=== PATIENT | female | born 1960 | race Caucasian/White ===

== ENCOUNTER 2023-05-28 09:03 | Outpatient (CLI) | payer BC, SELFPAY ==
--- NOTE | 2023-05-28 09:15 | FL_ITS ---
Patient: JAGUAR WALKER Facility:?[facility] Patient ID:?[id number] Site Patient ID:?[id number]. Site :?1960 Study:?XRay-Hip Left ARTHROGRAM TO READ-05/28/2023 11:35:12 AM Ordering Physician:MAURICE Final Report: Indication: Primary osteoarthritis of left hip Procedure : Informed consent was obtained. The site was marked. Time-out was performed. The skin of the left hip was cleansed with ChloraPrep. A sterile drape was placed. 8 cc of 1 percent lidocaine was administered for superficial anesthesia. Subsequently a 22 gauge spinal needle was introduced into the left hip joint under intermittent fluoroscopic guidance. Injection of 2 cc nonionic Omnipaque 240 contrast confirmed intra-articular location. Subsequently 11 cc of dilute gadolinium were injected. The needle was removed and hemostasis achieved with direct pressure. A dressing was placed. The patient tolerated the procedure well without immediate complication and was immediately sent to MRI for imaging. Total fluoroscopy time 57 seconds. Impression: Successful fluoroscopically guided left hip arthrogram for MRI. Dictated by Robin Matthew MD @ 05/28/2023 12:02:29 PM Signed by:?Robin Matthew MD @05/28/2023 12:02:29 PM (Electronic Signature)
--- NOTE | 2023-05-28 10:15 | MR_ITS ---
[address] [address] Phone:?[phone] Fax:?[phone] Referring Physician Information: Christopher Evans M.D. [address] [facility] [address] Phone:?[phone] Fax:?[phone] Patient:?Jessie Sun D.O.B:?1960 Sex:?Female Phone:?[phone] [facility] MRN:?[id number] Exam Date:?05/28/2023 EXAM: MR ARTHROGRAM of the LEFT HIP CLINICAL HISTORY: Ongoing left hip pain. Osteoarthritis of the left hip. History of previous surgery to the left hip. COMPARISONS: MRI 09/27/2015. TECHNIQUE: MR sequences of the left hip: coronals: PD, T2, T1FS sagittals: PD, T2, T1FS axial obliques: PD axials: PD FS coronals of pelvis: T1, STIR Sedation: None Contrast: Intra-articular gadolinium based contrast. The injection procedure is reported separately. FINDINGS: Pelvis osseous structures: Sacrum: No fracture or destructive osseous lesion is seen of the imaged portions of the sacrum. Sacroiliac joints: Mild nonspecific arthritic changes of the anteroinferior portions of both sacroiliac joints, similar compared to previous MRI 09/27/2015. No evidence of acute inflammatory sacroiliitis. Pubic rami: Unremarkable. Symphysis pubis: There is no evidence of acute osteitis pubis. Labrum: Previous surgery to the left hip labrum may be present; correlate with surgical history. Currently, there is ill-defined high-grade tearing of the left hip labrum from the 1 o'clock position anterosuperiorly through 3 o'clock position anteriorly best seen on the axial oblique and sagittal sequences. There is hypertrophy and marked fraying of the superior and posterosuperior portions of the labrum. Hip joint: The presence of contrast reflects intra-articular injection. There is extensive near full-thickness and full-thickness chondral loss over most of the superior portions of the left acetabulum and left femoral head with extensive associated subchondral edema-like signal and subchondral cystic changes. There is marked femoral head neck junction osteophytosis. Proximal femur: No fracture, osseous stress injury, avascular necrosis, or suspicious bone marrow signal abnormality is seen. There are surgical changes status post proximal femoral osteochondroplasty. Acetabulum: Ligamentum teres: Unremarkable. Myotendinous structures: Gluteus abductors: The gluteus minimus and medius tendons are unremarkable. Rectus abdominis-adductor longus aponeurosis, adductors, and rectus abdominis: Unremarkable. Hamstrings: Unremarkable. Flexors: The iliopsoas and rectus femoris tendons are intact. Quadratus femoris muscle: Unremarkable. Gluteal aponeurotic fascia and IT band: Unremarkable. Pelvic soft tissues: Unremarkable. The lumbar spine is not optimally evaluated by this dedicated MRI of the left hip. IMPRESSION: 1. Surgical changes status post left femoral head neck junction osteochondroplasty and suspected labral surgery; correlate with surgical history. 2. Marked left hip osteoarthritic changes, markedly progressed compared to previous MRI 09/27/2015, with extensive near full-thickness and full-thickness chondral loss over most of the superior portions of the acetabulum and femoral head, extensive associated subchondral edema-like signal/subchondral cystic changes, and marked femoral head neck junction osteophytosis. Ill-defined high- grade tearing of the labrum from the 1 o'clock position anterosuperiorly through 3 o'clock position anteriorly and hypertrophy and marked fraying of the superior and posterosuperior portions of the labrum; correlate with surgical history. 3. No fracture, osseous stress injury, or tendinous pathology of the left hip. RCB Electronically signed on 05/28/2023 2:00:00 PM by Brady Albarran M.D.
== END 2023-05-28 09:04 | disposition home or self-care (01) ==
LOC: RAD 09:04
PROVIDERS: PCP Family Medicine; Visit Provider Family Medicine
DX: M25.552 Pain in left hip (principal); M16.12 Unilateral primary osteoarthritis, left hip; M24.152 Other articular cartilage disorders, left hip
CPT/HCPCS: 27093; 73525; 73722; A9575

== ENCOUNTER 2023-06-30 15:00 | Outpatient (RCR) | payer BC, SELFPAY | END 2023-07-14 14:36 | disposition home or self-care (01) | PROVIDERS: PCP Family Medicine; Visit Provider Orthopaedic Surgery | DX: M16.12 Unilateral primary osteoarthritis, left hip (principal); Z51.89 Encounter for other specified aftercare | CPT/HCPCS: 97161; 97535; J1100; J2795 ==

== ENCOUNTER 2023-07-10 06:02 | Day surgery (SDC) | payer BC, SELFPAY ==
[2023-07-10] VITALS (21 sets, daily range): BP systolic 92–174; BP diastolic 68–109; PULSE 53–97; RESP 16; TEMP 36.4–36.6; O2SAT 91–100; BMI 33.0
[2023-07-10] MEDS: CELECOXIB 200 MG CAPSULE PO (06:20)
[2023-07-10] MEDS: OXYCODONE (CR) 10 MG TAB.ER.12H PO (06:20)
[2023-07-10] MEDS: ACETAMINOPHEN 500 MG TABLET 1000 MG PO (06:20)
[2023-07-10] MEDS: SODIUM CHLORIDE 0.9 % (FLUSH) 10 ML SYRINGE IVF ×2 (06:25→13:08)
[2023-07-10] MEDS: LACTATED RINGERS 1000 ML 1,000 ML 100 ML IV ×2 (06:25→07:51)
[2023-07-10] MEDS: fentaNYL 100 MCG/2 ML inj IVP (07:00)
[2023-07-10] MEDS: MIDAZOLAM HCL 1 MG/ML inj IVP (07:00)
--- NOTE | 2023-07-10 07:07 | SUR.PREOP ---
TIME?OUT:?0657 PT/Juan Antonio JUAREZ RN/Zenon WALLS MDA?VERIFICATION?OF?SURGICAL?SITE,?PROCEDURE,?AND?CONSENT OBTAINED?PRIOR?TO?INVASIVE?PROCEDURE.
--- NOTE | 2023-07-10 07:15 | XR_ITS ---
Patient: JAGUAR WALKER Facility:?[facility] Patient ID:?[id number] Site Patient ID:?[id number]. Site :?1960 Study:?XRay-Hip Left w/ c-arm-07/10/2023 9:25:12 AM Ordering Physician:?Sandeep Fields Final Report: Indication: Hip replacement surgery Technique: AP hip fluoroscopic images. Fluoroscopy time 90.1 seconds. Findings/Impression: Hardware from a left total hip arthroplasty is in satisfactory position. Dictated by Robin Matthew MD @ 07/10/2023 10:51:36 AM Signed by:?Robin Matthew MD @07/10/2023 10:51:36 AM (Electronic Signature)
[2023-07-10] MEDS: CEFAZOLIN 2 GM INJ IVP (07:45)
[2023-07-10] MEDS: TRANEXAMIC ACID 100 MG/ML INJ 1000 MG IV (07:49)
--- NOTE | 2023-07-10 09:22 | XR_ITS ---
Patient: JAGUAR WALKER Facility:?[facility] Patient ID:?[id number] Site Patient ID:?[id number]. Site :?1960 Study:?XRay-Hip Left 2 view Post op-07/10/2023 10:19:39 AM Ordering Physician:?Sandeep Fields Final Report: Indication: Post op left DAVID Technique: AP hip centered pelvis and lateral view left hip Findings/Impression: Hardware from a left total hip arthroplasty is in satisfactory position. Bone alignment is normal. No sign of acute fracture. Postop changes are within normal limits. Dictated by Robin Matthew MD @ 07/10/2023 10:47:45 AM Signed by:?Robin Matthew MD @07/10/2023 10:47:45 AM (Electronic Signature)
--- NOTE | 2023-07-10 09:23 | P.ORPRC_ITS ---
Procedure Note Date of procedure: 07/10/23 Procedure: PREOPERATIVE DIAGNOSIS: Left hip osteoarthritis POSTOPERATIVE DIAGNOSIS: Left hip osteoarthritis NAME OF OPERATION: Left total hip arthroplasty SURGEON: Sandeep Fields MD INSULATOR APPRENTICE: Betsy [facility] PA-C, SADIE Leon IMPLANTS: 1. [employer] [place] # 48 sector ingrowth cup 2. 32 x 48 +4 neutral polyethylene 3. Actis # 5 standard collared ingrowth stem 4. 32 +1 ceramic femoral head ANESTHESIA: General ESTIMATED BLOOD LOSS: 650cc COMPLICATIONS: None SPECIMENS: None DRAINS: None PREOPERATIVE ANTIBIOTICS: Ancef 2 grams INDICATIONS: The patient is a 63-year-old with a longstanding history of severe, unrelenting left hip pain secondary to end-stage left hip osteoarthritis. Despite appropriate nonoperative management, including activity modification, use of an assist device, anti-inflammatories, [id number] pain medication, physical therapy and injections, they continue to have pain and disability. Operative intervention was offered. The patient has a limb length discrepancy left shorter than right. She uses a lift in her left shoe. She asked us to add some length to her left leg to see if she can go without the lift. The risks, benefits and expected outcomes were discussed in detail. These included but were not limited to: Infection, bleeding, injury to blood vessel or nerve, venous thromboembolism. All questions were answered to their satisfaction. Use of an paraprofessional education assistant was necessary throughout the case for patient positioning and safety, soft tissue retraction and closure. A modifier 22 should be added to this case. The patient's weight of 85 kg with a BMI of 33 made exposure difficult. Additionally, with the deficiency of the anterior wall and anterior column this made cup purchase more difficult and added more time and expense to the case. PROCEDURE: The patient was placed supine on the [place] table. General anesthesia was administered. The paraprofessional education assistant made sure the patient was properly positioned. The left hip was prepped and draped in the usual sterile fashion. The image intensifier was brought in for a perfect AP pelvis and a perfect double tear drop AP view of each hip which were used for intraoperative templating with our fluoroscopic guide. An oblique incision was made 3 cm distal and 3 cm lateral to the anterior superior iliac spine. The paraprofessional education assistant retracted the soft tissues to protect them. Subcutaneous dissection was taken with electrocautery to the superficial fascia. The fascia was divided in line with the incision. Blunt dissection was carried medially to the tensor fascia dae and sartorius interval. Deep dissection was carried with electrocautery. The circumflex vessels were cauterized and divided. The capsule was exposed and then divided in a T- fashion, tagged with #1 Ethibond sutures. Retractors were placed in the joint, held by the paraprofessional education assistant. The corkscrew was placed in the femoral head. The neck cut was made in the subcapital region. We made a second neck cut more distal. The napkin ring of bone was removed. The femoral head was removed intact. Acetabular retractors were placed, held by the paraprofessional education assistant. The labrum was sharply debrided. The capsule was released. The anterior wall and column are deficient. The 43 mm reamer was used to the true medial wall. We then enlarged in 2 mm increments using the image intensifier for our reamer placement. We impacted the cup which had reasonable purchase. We elected to place 2 screws in the cup. A 6.5 mm x 40 mm and a 6.5 mm x 30 mm screw were placed into the ilium, using the image intensifier to confirm their placement. These had excellent purchase. We placed the polyethylene. Attention was then turned to the proximal femur. The limb was placed in 140 degrees of external rotation, maximum extension and adduction. A significant amount of time was spent releasing the capsule to allow us to deliver the femur into the wound and complete the femoral side safely. Retractors were held by the paraprofessional education assistant throughout the femoral preparation. The metal box maker and canal finder were used. Broaches were used to a stable size. The calcar reamer was used. Trial components were placed. The hip was reduced and was found to be stable with appropriate soft tissue tension. Length and offset had been nicely restored using the image intensifier and our fluoroscopic guide. Trial components were removed. The stem was impacted. We placed the femoral head. Again, the hip was reduced and was found to be stable with appropriate soft tissue tension. Length and offset had been nicely restored. The paraprofessional education assistant did a three minute dilute Betadine solution soak. The paraprofessional education assistant irrigated the wound with 3 liters of normal saline via pulse lavage. The paraprofessional education assistant repaired the anterior capsule with a #1 Vicryl and our previously placed Ethibond sutures. The paraprofessional education assistant closed the fascia over the tensor fascia dae with a #1 PDO Stratafix, subcutaneous tissues with 2-0 Vicryl, skin with a running 3-0 Stratafix and glue. A dry dressing was applied by the paraprofessional education assistant. Sponge and needle counts were correct x 2. The patient tolerated the procedure well; there were no apparent complications. They were awakened and extubated in the operating room, sent to the Post-Anesthesia Care Unit in satisfactory condition. PLAN: 1. The patient will be mobilized with physical therapy, weight-bearing as tolerates 2. Xarelto x 5 days then aspirin x 30 days will be used for DVT prophylaxis 3. The patient will be discharged once medically appropriate
--- NOTE | 2023-07-10 10:09 | W.ANESCHARGE ---
Anesthesia Charges Start Date/Time Anesthesia Start Date: 07/10/23 Anesthesia Start Time: 07:24 Stop Date/Time Anesthesia Stop Date: 07/10/23 Anesthesia Stop Time: 09:56
[2023-07-10] MEDS: LACTATED RINGERS 1000 ML 1,000 ML 75 ML IV (10:21)
--- NOTE | 2023-07-10 10:39 | W.PM.NB ---
Nerve Block Nerve Block Time Seen by Provider: 07:04 Date Seen: 07/10/23 Type of block requested by surgeon for post-operative analgesia: FERNANDA/LFCN Side: left Time out performed: Yes Verification of patient name: Yes Verification of date of : Yes Site marking: site marked Name of person performing procedure: Rommel Continuous monitoring Was continuous monitoring of O2 sat, B/P, shelter monitor, recorded every 15 minutes?: Yes Procedure Checklist: sterile prep, needles and gloves Ultrasound guided. Images saved: Yes Medications given in 5ml increments after negative aspiration: Ropivicaine %: 0.5 mL: 30 Needle gauge: 20 Decadron (mg): 10 Precedex (mcg): 25 Patient tolerated procedure well: Yes Additional comments: Needle noted below psoas tendon needle noted adjacent to LFCN Block Charges Block Charge (with Pro Fee): Other Periph Nerve Block Use of Ultrasound Machine for Block: Yes- US Guidance/pain block
--- NOTE | 2023-07-10 10:40 | W.ANESCHARGE ---
Anesthesia Charges Start Date/Time Anesthesia Start Date: 07/10/23 Anesthesia Start Time: 07:24 Stop Date/Time Anesthesia Stop Date: 07/10/23 Anesthesia Stop Time: 09:56
--- NOTE | 2023-07-10 11:10 | SUR.PHASEI ---
Fentanyl doses given in PACU are accounted for on Anesthesia record.
[2023-07-10] MEDS: OXYCODONE 5 MG TABLET PO (12:34)
[2023-07-10] MEDS: METOCLOPRAMIDE HCL 5 MG/ML INJ 10 MG IVP (13:08)
== END 2023-07-10 14:08 | disposition home or self-care (01) ==
PROVIDERS: PCP Family Medicine; Visit Provider Orthopaedic Surgery
PROC: (CPT 27130; principal; 2023-07-10 07:15)
DX: M16.12 Unilateral primary osteoarthritis, left hip (principal); G89.18 Other acute postprocedural pain
CPT/HCPCS: 27130; 01214; 36415; 64450; 73501; 76000; 76942; 86850; 86900; 86901; 97110; 97116; 97161; A9270; C1713; C1776; J0330; J0690; J1100; J1170; J2250; J2405; J2704; J2765; J2795; J3010; J7120

== ENCOUNTER 2023-07-10 21:48 | Emergency (ER) | payer BC, SELFPAY ==
[2023-07-10 21:54] VITALS: BP 152/84; PULSE 107; RESP 16; TEMP 35.8; O2SAT 94; BMI 34.0
--- NOTE | 2023-07-10 22:16 | ED_ITS ---
HPI - General Adult General Chief complaint: Unspecified Complaint, Adult Stated complaint: heartburn, neck/arm pain Time Seen by Provider: 07/10/23 22:01 History of Present Illness HPI narrative: This 63-year-old female had a left hip replacement and lengthening of her leg in the same process done surgically this morning. She comes in reporting heartburn symptoms. She does take Prilosec daily but states that she is having significant heartburn discomfort. She arrives with normal vital signs. Her surgery went well and she has no complaints in that regard. Related Data Home Medications Medication Instructions Recorded Confirmed omeprazole 40 mg capsule,delayed 40 mg PO DAILY 06/04/23 07/10/23 release sumatriptan succinate 50 mg tablet 50 mg PO Q2H PRN migraine 07/09/23 07/10/23 Previous Rx's Medication Instructions Recorded aspirin 81 mg chewable tablet 81 mg PO BID for DVT prophylaxis 07/10/23 (Aspirin Childrens) 30 days #60 tabs oxycodone-acetaminophen 5 mg-325 1 - 2 tab PO Q4-6H PRN pain #42 07/10/23 mg tablet (Percocet) tabs rivaroxaban 10 mg tablet (Xarelto) 10 mg PO DAILY #5 tabs 07/10/23 sennosides 8.6 mg tablet (Senna 17.2 mg (2 x 8.6 mg) PO BID PRN 07/10/23 Lax) constipation #100 tabs Allergies Allergy/AdvReac Type Severity Reaction Status Date / Time No Known Drug Allergies Allergy Verified 07/10/23 06:13 Review of Systems Status of ROS: Reports: 10 or more systems reviewed and unremarkable except as noted in History and below Narrative: Constitutional: No fevers, no weight gain or loss. Eyes: No discharge. No vision changes. HENT: No congestion, no sore throat, no ear pain. Cardiovascular: No chest pain, no palpitations. Respiratory: No shortness of breath, no wheezes, no cough. Gastrointestinal: No vomiting, no diarrhea. Acid reflux and heartburn. She reports some nausea symptoms also. Genitourinary: No dysuria, no hematuria. Musculoskeletal: Left hip replacement surgery today. Skin: No rashes, no pruritis. Neurological: No dizziness, weakness, sensory change, speech change. Endo/Heme/Allergies: No bruising or bleeding. No polydipsia. Pysch: no suicidality, no anxiety, no insomnia. All other systems reviewed and are negative. 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 ?M24.152 - Other articular cartilage disorders, left hip (ICD-10) Lumbar radiculopathy ?M54.16 - Radiculopathy, lumbar region (ICD-10) Lumbar facet arthropathy ?M47.816 - Spondylosis without myelopathy or radiculopathy, lumbar region (ICD-10) Surgical History History of arthroscopy of right knee (~2002) ?Z98.890 - Other specified postprocedural states (ICD-10) History of neck surgery (04/26/09) ?Z98.890 - Other specified postprocedural states (ICD-10) History of cholecystectomy ?Z90.49 - Acquired absence of other specified parts of digestive tract (ICD- 10) History of carpal tunnel surgery of left wrist (06/22/10) ?Z98.890 - Other specified postprocedural states (ICD-10) History of bunionectomy of left great toe (04/21/17) ?Z98.890 - Other specified postprocedural states (ICD-10) History of carpal tunnel surgery of right wrist (09/14/10) ?Z98.890 - Other specified postprocedural states (ICD-10) History of hip surgery ?Z98.890 - Other specified postprocedural states (ICD-10) History of open reduction and internal fixation (ORIF) procedure ?Z98.890 - Other specified postprocedural states (ICD-10) Social History (Updated 06/02/23 @ 08:16 by Halina Stewart ~ COMMERCIAL SEWING INSTRUCTOR, COMMERCIAL SEWING INSTRUCTOR) Narrative: -Alejo Smoking Status: Never smoker How often do you have a drink containing alcohol: never AUDIT-C Alcohol total score: 0 Non-prescribed substance use: denies use Caffeine: No Exam Narrative: Exam Narrative: Constitutional: Well-developed, well-nourished, no acute distress. HEENT: Normocephalic, atraumatic. Neck: Normal range of motion. Nontender. Supple. Heart: Regular. No murmurs. Normal rate. Intact distal pulses. Lungs: Clear to auscultation. No chest discomfort. No wheezes, rhonchi, or rales. Abdomen: Normal bowel sounds. Nontender. No rebound tenderness. Genitalia: Deferred. Back: No midline tenderness. Normal range of motion. Extremities: Left hip replacement surgery done earlier today. Skin: Intact. No rash. Warm. No erythema or pallor. Neurologic: No altered sensation. No weakness. Alert and oriented. Psychiatric: No suicidality. No anxiety or depression. No insomnia. Nursing notes and vitals signs are reviewed. Const: Vital Signs, click to edit/add: Vital Signs - 24 hr 07/10/23 21:54 Temperature 96.5 F L Pulse Rate [Left P ulse Oximeter] 107 H Respiratory Rate 16 Blood Pressure [Ri ght Upper Arm] 152/84 H Pulse Oximetry 94 Oxygen Delivery Me thod Room Air Course Vital Signs Vital signs: Initial Vital Signs Temperature 96.5 F L 07/10/23 21:54 Temperature Source Temporal Artery Scan 07/10/23 21:54 Pulse Rate 107 H 07/10/23 21:54 Pulse Rhythm Regular 07/10/23 21:54 Respiratory Rate 16 07/10/23 21:54 Blood Pressure 152/84 H 07/10/23 21:54 Blood Pressure Mean 106 H 07/10/23 21:54 Pulse Oximetry 94 07/10/23 21:54 Oxygen Delivery Method Room Air 07/10/23 21:54 Vital Signs Temperature 96.5 F L 07/10/23 21:54 Pulse Rate 107 H 07/10/23 21:54 Respiratory Rate 16 07/10/23 21:54 Blood Pressure 152/84 H 07/10/23 21:54 Pulse Oximetry 94 07/10/23 21:54 Oxygen Delivery Method Room Air 07/10/23 21:54 Temperature 96.5 F L 07/10/23 21:54 Pulse Rate 107 H 07/10/23 21:54 Respiratory Rate 16 07/10/23 21:54 Blood Pressure 152/84 H 07/10/23 21:54 Pulse Oximetry 94 07/10/23 21:54 Oxygen Delivery Method Room Air 07/10/23 21:54 Medications Administered Medications: Discontinued Medications Generic Name Dose Route Start Last Admin Trade Name Freq PRN Reason Stop Dose Admin Lidocaine/Aluminum/Magnesium/Simeth 30 ml 07/10/23 22:15 07/10/23 22:27 Gi Cocktail (Visc Lido/Antacid) 30 Ml PO 07/10/23 22:16 30 ml ONCE ONE Administration Ondansetron HCl 4 mg 07/10/23 22:15 07/10/23 22:28 Ondansetron Odt 4 Mg Tab PO 07/10/23 22:16 4 mg ONCE ONE Administration Medical Decision Making MDM Narrative Medical decision making narrative: This patient has some extra reflux symptoms today after having surgery this morning. She received an oral disintegrating tablet of Zofran and then a GI cocktail for symptomatic relief. This brought improvement to her symptoms. She states that her pain was 8 or 9/10 and now after these treatments her pain is at about 3/10. She is okay to be discharged home and is encouraged to take an extra dose of Prilosec, that is 40 mg in the morning and also 40 mg at bedtime for the next week or so. A prescription for Zofran is also provided. Discharge Plan Discharge Clinical Impression: Chest pain due to GERD Patient Disposition: Home w/ Parent or Adult Condition: Improved Additional Instructions: Okay to increase Prilosec for a week or so. Use Zofran as needed for nausea and continue other medications as prescribed. Follow up with MD or return if worsening. Prescriptions: No Action omeprazole 40 mg capsule,delayed release(DR/EC) 40 mg PO DAILY sumatriptan succinate 50 mg tablet 50 mg PO Q2H PRN (Reason: migraine) oxycodone-acetaminophen [Percocet] 5-325 mg tablet 1 - 2 tab PO Q4-6H PRN (Reason: pain) Qty: 42 0RF Xarelto 10 mg tablet 10 mg PO DAILY Qty: 5 0RF Rx Instructions: for 35 days aspirin [Aspirin Childrens] 81 mg tablet,chewable 81 mg PO BID 30 Days Qty: 60 0RF Rx Instructions: after completion of Xarelto, start Aspirin sennosides [Senna Lax] 8.6 mg Tablet 17.2 mg PO BID PRN (Reason: constipation) Qty: 100 0RF Follow Up/Referrals: Angeles Cadet MD [Primary Care Provider] - Stand Alone Forms: [employer] Info Instructions
[2023-07-10] MEDS: GI COCKTAIL (VISC LIDO/ANTACID) 30 ML PO (22:27)
[2023-07-10] MEDS: ONDANSETRON ODT 4 MG TAB PO (22:28)
--- OUTSIDE RECORDS SUMMARY | 2023-07-10 22:32 | XMS_ITS | Clinical Summary ---
Author Name Unknown Organization [employer] [facility] Address [place], [place] [address] Care Team Providers Care Former Hand Name Role Phone Angeles Cadet MD Primary Care Provide r Allergies No known active allergies Medications Medication Sig Dispensed Refills Start Date End Date Status omeprazole (PRILOSEC) 40 mg Delayed-Release capsuleIndications:G ERD without esophagitis Take 1 Capsule (40 mg) by mouth once daily before a meal. 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 GIVE AT MINIMUM 2HRS APART. MAX DOSE: 200MG PER 24HRS. 10 Tablet 11 10/15/2022 Active rosuvastatin (CRESTOR) 10 mg tabletIndications:Hy perlipidemia, unspecified hyperlipidemia type Take 1 Tablet (10 mg) by mouth at bedtime. 90 Tablet 3 06/30/2023 Active cyclobenzaprine (FLEXERIL) 10 mg tabletIndications:Fi bromyalgia Take 0.5 Tablets (5 mg) by mouth at bedtime if needed for Muscle Spasm. Cuts in half 45 Tablet 3 10/04/2022 4 Discontinue d(*Med complete/Re gimen complete/Le musa of care change) amitriptyline (ELAVIL) 25 mg tabletIndications:Mi graine without aura and without status migrainosus, not intractable Take 0.5 Tablets (12.5 mg) by mouth at bedtime. 45 Tablet 3 10/04/2022 4 Discontinue d(*Med complete/Re gimen complete/Le musa of care change) celecoxib (CELEBREX) 200 mg capsuleIndications:P rimary osteoarthritis of left hip Take 1 Capsule (200 mg) by mouth two times daily with meals. 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 01/17/2014 Hearing reduced 09/10/2011 Cervical DDD with neuroforaminal stenosis 2008 Calculus of gallbladder with out mention of cholecystitis or obstruction 05/31/2006 GERD without esophagitis Overview: WITH HEARTBURN EGD 01/2023 normal esophageal biopsies, increased intraepithelial lymphocytes on duodenal biopsies, possible early celiac disease, recommend celiac blood test Resolved Problems Problem Noted Date Diagnosed Date Resolved Date Trochanteric bursitis of left hip 07/15/2013 01/17/2014 Rotator Cuff Tendinopathy 09/05/2008 Left Shoulder Rotator Cuff Tendinopathy 09/05/2008 09/05/2008 Displacement of cervical int ervertebral disc without myelopathy 01/17/2014 Headache(784.0) 10/15/2013 Encounters Date Type Department Care Team Description 06/27/2023 Telephone [facility] [address] [facility] [place] [address] Angeles Cadet MD Results 06/26/2023 9:29 AM CDT - 06/26/2023 11:59 PM CDT Hospital Encounter [facility] [address] [place] [address] Angeles Cadet MD Hyperlipidemia, unspecified hyperlipidemia type 06/26/2023 Travel 06/23/2023 Orders Only [facility] [address] [facility] [address] Angeles Cadet MD 1 scan: (1-Ord) NFLD-EKG-06/20/23 06/20/2023 9:40 AM CDT Preop Visit [facility] [address] [place] [address] Angeles Cadet MD Pre-Op Exam (Left total hip. 07/10/23 ) 06/20/2023 Travel 05/30/2023 Telephone [facility] [address] [place] [address] Christopher Evans MD Results 05/28/2023 Orders Only [facility] Scanner 1 scan: (1-Ord) [facility], HIP LT ARTHROGRAM , 05/28/2023 05/28/2023 Orders Only [facility] Scanner 1 scan: (1-Ord) [facility], 8 CC OF 1% LIDOCAINE. 2 CC NONIONIC OMNIPAQUE. 11 CC OF DILUTE GAOLINIUM., 05/28/2023 05/26/2023 2:00 PM ADMINISTRATIVE APPEALS [employer] Ancillary Procedure [facility] [address] [place] [address] 05/26/2023 Travel 05/23/2023 2:00 PM [employer]MINISTRATIVE [employer] Procedure Only [facility] [address] [place] [address] Naa Schumacher L Ac Acupuncture 05/23/2023 Travel 05/09/2023 2:30 PM ADMINISTRATIVE [employer] Procedure Only [facility] [address] [place] [address] Naa Schumacher L Ac Acupuncture 05/08/2023 10:00 AM AD[employer]RATIVE [employer] Office Visit [facility] [place] [address] Christopher Evans MD Musculoskeletal Problem (Follow up Left hip ) 05/08/2023 Travel 05/02/2023 Telephone [facility] [address] [place] [address] Christopher Evans MD Appointment 04/25/2023 2:30 PM [employer]MINISTRATIVE [employer] Procedure Only [facility] [address] [facility] [address] Naa Schumacher L Ac Acupuncture 04/25/2023 Travel 04/18/2023 11:00 AM ADMINISTRATIVE [employer] Procedure Only [facility] [address] [facility] [address] Naa Schumacher L Ac Acupuncture 04/18/2023 Travel 04/15/2023 Travel 04/11/2023 11:00 AM ADMINISTRATIVE [employer] Procedure Only [facility] [address] [place] [address] Naa Schumacher L Ac Acupuncture (Initial) 04/11/2023 Travel from Last 3 Months Immunizations Name Administration Dates Next Due COVID-19 vaccine (Moderna 100mcg/0.5mL) PF, MDV 06/16/2020,05/19/2020 Hepatitis B (Adult) 01/09/2012,09/26/2008,2007 Influenza, IIV3 (Age 6-35 mos) 12/28/2008 Influenza, IIV3 (Age >=3 years) 12/11/19 14,01/01/2013,12/13/2011, 012,12/14/2010,01/19/2010,12/22/2009, Influenza, IIV4 12/07/2015 Influenza, IIV4 (=>6mos) MDV 12/27/2020, 12/15/2019,12/29/2018, 018,12/13/2016,12/16/2014 MMR 01/26/1999,11/13/1998 Td (Age >=7 Years) 05/25/1997 Tdap 10/05/2019,03/10/2008 Family History Medical History Relation Name Comments Heart Disease Father Chasidy Hyperlipidemia Father Chasidy Other Mother Sonia Dementia, age 8 5 Cancer-breast Sister 1 Hollie Relation Name Status Comments Brother 1 Hiram Alive Brother 2 Silvio Alive Daughter 1 Gillian Alive Daughter 2 Iliana Alive Daughter 3 Laura Alive Father Chasidy Maternal Grandfather Maternal Grandmother Mother Sonia Paternal Grandfather Paternal Grandmother Sister 1 Hollie Alive Sister 2 Sindy Alive Son Ferdinand Alive Social History Tobacco Use Types Packs/Day Years Used Date Smoking Tobacco: Never Smokeless Tobacco: Never Tobacco Cessation:Counseling Given: Yes Alcohol Use Standard Drinks/Week Comments No 0 (1 standard drink = 0.6 oz pur e alcohol) at [facility] PHQ-2 Answer Date Recorded PHQ-2 TOTAL SCORE 0 10/04/2022 Social Connections Answer Date Recorded Frequency of Communication with Friends and Fami ly 0 10/04/2022 Financial Resource Strain Answer Date R ecorded Difficulty of Paying Living Expenses 3 10/04/2022 Difficulty of Paying Living Expenses Not on file 10/04/2022 Food Insecurity Answer Date Recorded Worried About Running Out of Food in the Last Ye ar 1 10/04/2022 Transportation Needs Answer Date Record ed Lack of Transportation (Medical) 1 10/04/2022 Housing Stability Answer Date Recorded Unable to Pay for Housing in the Last Year 1 10/04/2022 Sex and Gender Information Value Date Recorded Sex Assigned at Not on file Gender Identity Not on file Sexual Orientation Not on file Obstetrics History Para Term AB IAB SAB Ectopic Multiple Livin g Live Births 4 4 3 1 4 Date Outcome GA Total Labor Labor/2nd/3rd Weight Sex Delivery Anes PTL Sonia A1 A5 Name Cl in Term Term Term Last Filed Vital Signs Vital Sign Reading Time Taken Comments Blood Pressure 129/82 06/20/2023 9:52 AM CDT Pulse 63 06/20/2023 9:52 AM CDT Temperature 36.7 ??C (98.1 ??F) 05/08/2023 10:[address] Respiratory Rate 16 01/21/2023 3:53 PM CDT Oxygen Saturation 98% 06/20/2023 9:52 AM CDT Inhaled Oxygen Concentration - - Weight 84.6 kg (186 lb 9.6 oz) 06/20/2023 9:52 A M CDT Height 158.1 cm (5' 2.25) 10/04/2022 8:11 AM CD T Body Mass Index 33.86 10/04/2022 8:11 AM CDT Plan of Treatment Health Maintenance Due Date Last Done Comments HIV for age 15-65 02/03/1975 Zoster (shingles) series for age 50+ (1 of 2) 02/03/2010 COVID-19 vaccine series (3 - 2022- season) 2022 06/16/2020, 05/19/2020 BMI (ht and wt on same day) for age 18+ 10/05/2023 10/04/2022, 09/27/2021, 03/26/2021, Additional history exists Depression screening for age 12+ 10/05/2023 10/04/2022, 09/27/2021, 10/05/2020, Additional history exists Mammogram for age 45-75 10/05/2023 10/05/19, 10/11/2020, 10/12/2019, Additional history exists Pap test for age 21-65 10/06/2023 , 09/26/2017, 10/25/2014, Additional history exists Influenza for age 50-64 11/23/2023 12/28/19, 12/15/2019, 12/29/2018, Additional history exists Colonoscopy through age 75 10/12/2024 10/12/2014, Lipids for age 45-75 10/05/2027 10/04/2022, 09/27/2021, 10/05/2020, Additional history exists Tetanus booster 10/04/2029 10/05/2019, 02/21, 05/25/1997 Hepatitis C screening for age 18-79 Completed 10/05/2019 Tdap Completed 10/05/2019, 03/10/2008 Pneumococcal series for age 6-64 Aged Out No longer eligible based on patient's age to complete this topic Procedures Procedure Name Priority Date/Time Associated Diagnosis Comments CT CARDIAC CALCIUM SCORE ONLY WO SINGLE READ Routine 06/26/2023 9:56 AM CDT Hyperlipidemia, unspecified hyperlipidemia type EKG 12 LEAD Routine 06/23/2023 8:13 AM CDT Preoperative examination SD READING EKG - NO CHARGE, COMP ONLY Routine 06/23/2023 8:12 AM CDT Preoperative examination CBC WITH AUTO DIFFERENTIAL Routine 06/20/2023 11:19 AM CDT Preoperative examination BASIC METABOLIC PANEL Routine 06/20/2023 11:19 AM CDT Preoperative examination CBC WITH AUTO DIFFERENTIAL Routine 06/20/2023 11:19 AM CDT Preoperative examination SCAN-RADIOLOGY REPORT 05/28/2023 12:00 AM ADMINISTRATIVE APPEALS [employer] MR ARTHROGRAM HIP LEFT Routine 05/28/2023 12:00 AM ADMINISTRATIVE APPEALS [employer] Primary osteoarthritis of left hip Degenerative tear of acetabular labrum of left hip Status post left hip labrum surgery SCAN-OPERATIVE/PROCE DURE REPORT 05/28/2023 12:00 AM ADMINISTRATIVE APPEALS [employer] MR SPINE LUMBAR WO Routine 05/26/2023 2: 31 PM ADMINISTRATIVE APPEALS [employer]BER Lumbar facet arthropathy Lumbar radiculopathy ACUPUNCTURE PLAN OF CARE Routine 05/23/2023 2:03 PM ADMINISTRATIVE APPEALS [employer] Primary osteoarthritis of left hip Lumbar facet arthropathy Chronic left hip pain ACUPUNCTURE PLAN OF CARE Routine 05/09/2023 2:33 PM ADMINISTRATIVE APPEALS [employer]BER Primary osteoarthritis of left hip Lumbar facet arthropathy Chronic left hip pain ACUPUNCTURE PLAN OF CARE Routine 04/25/2023 2:30 PM ADMINISTRATIVE APPEALS [employer]BER Primary osteoarthritis of left hip Lumbar facet arthropathy Chronic left hip pain ACUPUNCTURE PLAN OF CARE Routine 04/22/2023 12:16 PM ADMINISTRATIVE APPEALS [employer]BER Primary osteoarthritis of left hip Lumbar facet arthropathy Chronic left hip pain ACUPUNCTURE PLAN OF CARE Routine 04/18/2023 11:32 AM ADMINISTRATIVE APPEALS [employer] Primary osteoarthritis of left hip Lumbar facet arthropathy Chronic left hip pain XR MAMMO JEMAL BILAT SCREEN Routine 10/04/2022 9:41 AM CDT Encounter for screening mammogram for malignant neoplasm of breast LIPID PANEL W REFLEX MEASURED LDL Routine 10/04/2022 9:25 AM CDT Hyperlipidemia, unspecified hyperlipidemia type 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 For Patients: As a result of the Cures Act, medical imaging exams and procedure reports are released immediately into your electronic medical record. ??You may view this report before your referring provider. ?? If you have questions, please contact your health care provider. ??ADDENDUM ? ADDENDUM ? ADDENDUM FINAL REPORT ?? CT CARDIAC CALCIUM SCORING, 06/26/2023 PATIENT HISTORY: ??CHD screening. ?? REPORT: ??High-resolution, ECG-synchronized computed tomography of the heart with attention to the coronary arteries was performed using Siemens ZyanteView CT. Coronary calcification analyzed using Siemens calcium scoring software. These are the results of the evaluation: Artery Number of Lesions Volume Equiv. Mass Calcium Score LM 0 0.0 0.00 0.0 LAD 3 23.0 4.20 21.9 CX 0 0.0 0.00 0.0 RCA 2 8.9 1.52 7.8 TOTAL 5 31.9 5.72 29.7 Threshold: ??130 HU ??(102.7 mg/cm3 CaHA) *) Calibration factor: 0.790 mg/(HUcm3) CaHA The Computed Tomography of the coronary arteries detected coronary calcifications. ??According to the current state of knowledge (O'Jordan, Circulation 2000; 102:126), coronary calcifications are a marker for coronary atherosclerosis. ??The more calcium is detected, the higher is the likelihood for an obstructive coronary disease. ??However, there is no unique relationship between the amount of detected calcium and the extent or localization of this disease. ??The amount of calcium is closely correlated with the extent of coronary atherosclerosis, although the true plaque burden is underestimated. ??With a high amount of coronary calcium, a moderate to high risk of a cardiovascular event within the next 2 to 5 years can be assumed. ?? No Identifiable Calcification Minimal Identifiable Calcification Mild Calcification Moderate Calcification Significant Calcification 0 1-10 11-100 101-400 401 and above (Following [facility] Clin Proc. 1999;74(3):243-252) COMMENT: Calcified granuloma left upper lobe and left hilum. The lung peter are otherwise clear. Heart size normal. IMPRESSION: The coronary artery calcium score of 29.7 is consistent with mild calcification. Recommend appropriate risk management. ?? Please note that all CT scans at this facility use dose modulation, iterative reconstruction, and/or weight-based dosing when appropriate to reduce radiation dose to as low as reasonably achievable. Dictated by Feliciano Cuevas MD @ 06/26/2023 10:52:53 AM / CRL:ailyn (Electronically Signed) Narrative 06/26/2023 10:52 AM CDT For Patients: ??As a result of the YesWeAd Cures Act, medical imaging exams and procedure reports are released immediately into your electronic medical record. ??You may view this report before your referring provider. ?? If you have questions, please contact your health care provider. INDICATION: CHD screening. TECHNIQUE: CT cardiac calcium score. Comment: Calcified granuloma left upper lobe and left hilum. The lung peter are otherwise clear. Heart size normal. Impression : The coronary artery calcium score of 29.7 is consistent with mild calcification. Recommend appropriate risk management. Please note that all CT scans at this facility use dose modulation, iterative reconstruction, and/or weight-based dosing when appropriate to reduce radiation dose to as low as reasonably achievable. Dictated by Feliciano Cuevas MD @ 06/26/2023 10:52:53 AM (Electronically Signed) Angeles Cadet MD CT * EKG 12 LEAD (06/23/2023 8:13 AM CDT) Angeles Cadet MD EKG ORD * SD READING EKG - NO CHARGE, COMP ONLY (06/23/2023 8:12 AM CDT) Angeles Cadet MD PB - PROVIDER READINGS * CBC WITH AUTO DIFFERENTIAL (06/20/2023 11:19 AM CDT) WHITE BLOOD COUNT 8.6 4.5 - 11.0 thou/cu mm 06/20/2023 11:33 AM CDT [facility] RED BLOOD COUNT 5.14 4.00 - 5.20 mil/cu mm 06/20/2023 11:33 AM CDT [facility] HEMOGLOBIN 14.5 12.0 - 16.0 g/dL 06/20/2023 11:33 AM CDT [facility] HEMATOCRIT 43.4 33.0 - 51.0 % 06/20/2023 11:33 AM CDT [facility] MCV 84 80 - 100 fL 06/20/2023 11:33 AM CDT [facility] MCH 28.2 26.0 - 34.0 pg 06/20/2023 11:33 AM CDT [facility] MCHC 33.4 32.0 - 36.0 g/dL 06/20/2023 11:33 AM CDT [facility] RDW 14.2 11.5 - 15.5 % 06/20/2023 11:33 AM CDT [facility] PLATELET COUNT 291 140 - 440 thou/cu mm 06/20/2023 11:33 AM CDT [facility] MPV 9.4 6.5 - 11.0 fL 06/20/2023 11:33 AM CDT [facility] % NEUT 70.9 % 06/20/2023 11:33 AM CDT [facility] % LYMPH 18.4 % 06/20/2023 11:33 AM CDT [facility] % MONO 8.5 % 06/20/2023 11:33 AM CDT [facility] % EOS 2.0 % 06/20/2023 11:33 AM CDT [facility] % BASO 0.2 % 06/20/2023 11:33 AM CDT [facility] ABSOLUTE NEUTROPHILS 6.1 1.7 - 7.0 thou/cu mm 06/20/2023 11:33 AM CDT [facility] ABSOLUTE LYMPHOCYTES 1.6 0.9 - 2.9 thou/cu mm 06/20/2023 11:33 AM CDT [facility] ABSOLUTE MONOCYTES 0.7 <0.9 thou/cu mm 06/20/2023 11:33 AM CDT [facility] ABSOLUTE EOSINOPHILS 0.2 <0.5 thou/cu mm 06/20/2023 11:33 AM CDT [facility] ABSOLUTE BASOPHILS 0.0 <0.3 thou/cu mm 06/20/2023 11:33 AM CDT [facility] Blood BLOOD SPECIMEN / Unknown Venipuncture / Unknown 06/20/2023 11:19 AM CDT 06/20/2023 11:19 AM CDT Angeles Cadet MD HEMATOLOGY [facility] [address] [place] [address], * (ABNORMAL) BASIC METABOLIC PANEL (06/20/2023 11:19 AM CDT) SODIUM 138 136 - 145 mmol/L 06/20/2023 9:28 PM CDT [facility] POTASSIUM 5.0 3.5 - 5.1 mmol/L 06/20/2023 9:28 PM CDT [facility] CHLORIDE 100 98 - 107 mmol/L 06/20/2023 9:28 PM CDT [facility] CO2,TOTAL 28 22 - 29 mmol/L 06/20/2023 9:28 PM CDT [facility] ANION GAP 10 5 - 18 06/20/2023 9:28 PM CDT [facility] GLUCOSE 94 70 - 99 mg/dL 06/20/2023 9:28 PM CDT [facility] CALCIUM 9.7 8.8 - 10.2 mg/dL 06/20/2023 9:28 PM CDT [facility] BUN 20 8 - 23 mg/dL 06/20/2023 9:28 PM CDT [facility] CREATININE 0.89 0.50 - 0.90 mg/dL 06/20/2023 9:28 PM CDT [facility] BUN/CREAT RATIO 22(H) 10 - 20 9:28 PM CDT [facility] eGFR 73(L) >90 mL/min/1.7 3m2 06/20/2023 9:28 PM CDT [facility] Comment:As of 2021, eG FR is calculated by the CKD-EPI creatinine equation without race adjustment. ??eGFR can be influenced by muscle mass, exercise, and diet. ??The reported eGFR is an estimation only and is only applicable if the renal function is stable. Blood BLOOD SPECIMEN / Unknown Venipuncture / Unknown 06/20/2023 11:19 AM CDT 06/20/2023 11:19 AM CDT Angeles Cadet MD CHEMISTRY [facility] [address] [place] [address], * MR ARTHROGRAM HIP LEFT (05/28/2023 12:00 AM ADMINISTRATIVE APPEALS [employer]) Anatomical Region Laterality Modality HIPL Magnetic Resonan ce Christopher Evans MD MR * SCAN-RADIOLOGY REPORT (05/28/2023 12:00 AM ADMINISTRATIVE APPEALS [employer]BER) Anatomical Region Laterality Modality Other Scanner OTHER * SCAN-OPERATIVE/PROCEDURE REPORT (05/28/2023 12:00 AM ADMINISTRATIVE APPEALS [employer]BER) Scanner OTHER * MR SPINE LUMBAR WO (05/26/2023 2:31 PM ADMINISTRATIVE APPEALS [employer]) Anatomical Region Laterality Modality Spine, LUMBAR SPINE Magnetic Res onance Narrative 05/27/2023 11:52 AM ADMINISTRATIVE APPEALS [employer] Indication: Low back pain. ??Left hip pain. Comparison: Lumbar spine MRI from 03/01/2014. Technique: Lumbar spine MRI without contrast. Findings: Slightly accentuated lumbar lordosis. ??Moderate levoconvex lumbar scoliosis with apex at L2-3. ??No acute fracture or marrow replacing process. ??Lower cord/conus and cauda equina nerve roots are normal in appearance. ??No extraspinal soft tissue abnormalities. Discs/endplates: Moderate disc height loss/disc desiccation at L2-3/L3-4 on the right and L5-S1 on the left. ??Mild disc degeneration elsewhere. Lower thoracic levels: No spinal canal or neuroforaminal stenosis. L1-2: Minimal disc bulge. ??Bilateral low-grade facet arthrosis. ??No spinal canal or neuroforaminal stenosis. L2-3: Mild disc bulge and tiny left caudal foraminal protrusion component. Bilateral low-grade facet arthrosis. ??No spinal canal or neuroforaminal stenosis. L3-4: Mild disc bulge. ??Bilateral facet arthrosis and ligamentum flavum thickening. ??Mild spinal canal stenosis. ??Mild bilateral neuroforaminal stenosis. L4-5: A tiny left central protrusion minimally contacts the traversing left L5 nerve root. ??Bilateral facet arthrosis. ??No spinal canal or neuroforaminal stenosis. L5-S1: Minimal disc bulge with overlying osteophytic ridging. ??Bilateral high-grade facet arthrosis. ??No spinal canal or neuroforaminal stenosis. SI joints: Bilateral arthrosis. Impression: 1. ??Moderate degenerative levoconvex scoliosis secondary to multilevel asymmetric disc height loss. ??Progressed since 2013. 2. ??At L3-4, mild spinal canal stenosis. ??New since prior. 3. ??At L4-5, a tiny left central protrusion minimally contacts the traversing left L5 nerve root. ??New since prior. 4. ??Scattered facet arthrosis, most prominent at L4-5 and L5-S1, slightly progressed. 5. ??Lower cord/conus and cauda equina nerve roots are normal in appearance. Christopher Evans MD MR * XR MAMMO JEMAL BILAT SCREEN (10/04/2022 9:41 AM CDT) Anatomical Region Laterality Modality BREASTS, Breast Left, Breast Right Bilateral Mammography Impressions 10/04/2022 4:30 PM CDT ??There is no radiographic evidence for malignancy. ??Recommend annual mammograms. MAMMOGRAM ASSESSMENT: ??ACR 1 Negative PATIENTS: You will also receive a letter with your examination results in an easy to read format. ??If you have questions about your results, please contact your referring provider. Narrative 10/04/2022 4:30 PM CDT For Patients: As a result of the Century Cures Act, medical imaging exams and procedure reports are released immediately into your electronic medical record. You may view this report before your referring provider. If you have questions, please contact your health care provider. XR MAMMO JEMAL BILAT SCREEN [[id number]] CLINICAL HISTORY: ??This is an asymptomatic 62 y.o. patient. INDICATION FOR EXAM: Mammogram Screening. TECHNIQUE: CC & MLO views were obtained. ??This study was evaluated with the assistance of Computer-Aided Detection. Breast Tomosynthesis was used in interpretation. COMPARISON FILM: Yes 10/11/20 [facility] 10/12/19 [facility] FINDINGS: ??The breasts have scattered areas of fibroglandular density. There are no dominant masses, suspicious micro calcifications or areas of architectural distortion. Angeles Cadet MD MAMMO * (ABNORMAL) LIPID PANEL W REFLEX MEASURED LDL (10/04/2022 9:25 AM CDT) CHOLESTEROL,TOTAL 255(H) 100 - 199 mg/dL 10/04/2022 7:01 PM T [facility] Comment: Cholesterol, Total Reference Ranges Desirable <200 mg/dL Borderline 200-239 mg/dL High >=240 mg/dL TRIGLYCERIDES 136 <150 mg/dL 10/04/2022 7:01 PM CDT [facility] HDL CHOLESTEROL 58 >40 mg/dL 7:01 PM CDT [facility] NON-HDL CHOLESTEROL 197(H) <145 mg/dl 10/04/2022 7:01 PM T [facility] CHOL/HDL RATIO 4.40 <4.50 10/04/2022 7:01 PM T [facility] LDL CHOLESTEROL 170(H) <=130 mg/dL 10/04/2022 7:01 PM T [facility] VLDL CHOLESTEROL 27 <=30 mg/dL 10/04/2022 7:01 PM CDT [facility] PROVIDER ORDERED STATUS RANDOM 10/04/2022 7:01 PM CDT [facility] Blood BLOOD SPECIMEN / Unknown Venipuncture / Unknown 10/04/2022 9:25 AM CDT 10/04/2022 9:25 AM CDT Angeles Cadet MD CHEMISTRY [facility] 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 Case: [id number] ? Authorizing Provider: ??Angeles Cadet, ??Collected: ? 10/05/2020 0900 ? MD ? Ordering Location: ? [facility] ?? Received: ?10/05/2020 0931 ? Clinic ? First Screen: ?Nikole Almeida ? Specimen: ?LEVEE SUPERINTENDENT ThinPrep Vial Screening, Cervical ? 10/17/2020 10:29 AM CDT [facility] LABORATORY-C ENTRAL LABORATORY INTERPRETATION/ RESULT NEGATIVE FOR INTRAEPITHELIAL LESION OR MALIGNANCY (NIL) (none) 10/17/2020 10:29 AM CDT [facility] [employer] LABORATORY-C ENTRAL LABORATORY IMEN ADEQUACY Satisfactory for evaluation Endocervical component present 10/17/2020 10:29 AM CDT [employer] LABORATORY-C ENTRAL LABORATORY HPV REQUEST HPV if ASCUS 10/17/2020 10:29 AM CDT [facility] LABORATORY-C ENTRAL LABORATORY Date of LMP n/a 10/17/2020 10:29 AM CDT [facility] [employer] LABORATORY-C ENTRAL LABORATORY Last Pap Date 09/26/17 10/17/2020 10:29 AM CDT [facility] [employer] LABORATORY-C ENTRAL LABORATORY Last Pap Result NIL 10:29 AM CDT [facility] [employer] LABORATORY-C ENTRAL LABORATORY Abnormal Pap or [place] Bx in last 5 years No 10/17/2020 10:29 AM CDT [facility] [employer] LABORATORY-C ENTRAL LABORATORY Menstrual Status Postmenopausal 10/17/2020 10:29 AM CDT [facility] [employer] LABORATORY-C ENTRAL LABORATORY [place] Bx Done Today No 10/17/2020 10:29 AM CDT [facility] [employer] [facility] ENTRAL LABORATORY Additional Information None given 10/17/2020 10:29 AM CDT [facility] [employer] [facility]- ENTRAL LABORATORY Comment: Cytology is screened at [facility] Laboratory - [address], [place] [address] and [facility] - [address], [place] [address] and [facility] - [address] [place] [address] Interpreted at [facility] - [address], [place] [address] Automated Review Successful 10/17/2020 10:29 AM CDT [facility] ENTRAL LABORATORY Comment:Specimen processed s uccessfully by automated smoking pipe mounter device, ThinPrep Imaging System, [employer] Note The pap test is a screening technique, not a diagnostic procedure. It is used primarily to screen for squamous cancers and precursor lesions. Published studies have shown that it is subject to both false negative and false positive results. The pap test should not be used as the sole means to diagnose or exclude pre-malignant and malignant lesions. 10/17/2020 10:29 AM CDT [facility] ENTRAL LABORATORY Other (Cervical) Non-Blood / Unknown 10/05/2020 9:00 AM CDT 10/05/2020 9:31 AM CDT Angeles Cadet MD PATHOLOGY/CYT OLOGY [facility] [address] [place] [address], [place] * ANTI HCV (10/05/2019 4:12 PM CDT) HEPATITIS C ANTIBODY Non-React selin Non-React selin 10/06/2019 3:12 PM CDT [facility] TRAL LABORATORY Comment:Antibodies to HCV no t detected; does not exclude the possibility of exposure to HCV. Blood BLOOD SPECIMEN / Unknown Venipuncture / Unknown 10/05/2019 4:12 PM CDT 10/05/2019 4:15 PM CDT Angeles Cadet MD SEND OUTS [facility] [address] [place] [address], [place] from Last 3 Months or Most Recently Relevant to Health Maintenance Advance Directives Documents on File Type Date Recorded Patient Service Delivery Management Consultant Expl anation Healthcare Directive 04/26/2009 * Full Code (Latest Code Status on File) Date Activated Date Inactivated Comments 04/26/2009 12:14 PM 04/27/2009 3:55 PM * Full Code Date Activated Date Inactivated Comments 04/26/2009 6:04 AM 04/26/2009 12:14 PM Care Teams Former Hand Relationship Specialty Start Date End Date Angeles Cadet MD [address] [place] [address] PCP - General 09/12/05
--- OUTSIDE RECORDS SUMMARY | 2023-07-10 22:32 | XMS_ITS | Continuity of Care Document ---
Author Name Unknown Organization [facility] Address [address] [place] [address] [address] [place] [address] Phone Care Team Providers Care Farm Manager Name Role Phone Valdez Badillo MD Unavailable Unavailable Medications Medication Instructions Dosage Effective Dates (start - stop) Status Comments [place] 10 mg-325 mg Tab take 1 tablet by ORAL route every 4 - 6 hours as needed for pain - Active 1-2 tabs q 4-6 h prn Procedures Procedure Date Postop followup visit X-ray exam of neck spine2-3 views Postop followup visit Cervical spine disk surgery/decompress F PA Assist Cervical spine disk surgery/de compress Office consultation, moderate 0 Advance Directives Directive Yes / No Effective Date File Name No Information Encounters Encounter Description Practice Location Reason(s) For Visit Diagnoses Date Provider Providers Copied on Encounter [facility], [address] [place] [address], [id number], [place] tel:[phone] [facility] No Information 0 Justino Kellogg. [facility], [address], [facility] [address], [place], [id number], [place]. tel:[phone] Referring Provider: Christopher Tello, [address], [place], [address]. tel:[phone] [facility], [address] [place] [address] [address], [place], [address], tel:[phone] [facility] [employer] No Information 2-201 0 Eckroth Darshan. [address] [place] [address], [id number], . tel:[phone] Referring Provider: Christopher Tello, [facility] [address] , [place], [address]. tel:[phone] [facility], [address] [place] [address], [facility], [place] tel:[phone] [facility] [employer] No Information - 0 Transfeldt Ensor. [facility], [address] [place] [address], [address] [place] [address], . tel:[phone] [facility], [address] [place] [address], [facility], [place] tel:[phone] [facility] No Information 0 Transfeldt Ensor. [facility], [address] [place] [address], [id number], . tel:[phone] Referring Provider: Christopher Tello, [facility], [place], [address]. tel:[phone] Office consultation , moderate [facility], [address] [place] [address], [facility], [place] tel:[phone] [facility] [employer] No Information 0 Transfeldt Ensor. [facility], [address], [id number], . tel:[phone] Family History Family Member Type Diagnosis Age At Onset No Information Payers Payer name Insurance type Covered alliance party ID Dianna cross(s) [facility] [id number] Social History Type Description Quantity Date Captured Comments Sex Female Smoking Status No Information Vital Signs Date / Time: Height Weight BMI Pulse Rate Blood Pressure Temperature Respiratory Rate Body Surface Area Head Circumference Head Circ. Percentile Wt./Yogesh. Percentile BMI percentile Pulse Ox Inhaled Ox 63.00 in 80.000 kg (176.00 lbs) Chief Complaint And Reason For Visit No Information Reason For Referral Reason For Referral No Information History Of Present Illness Encounter Date Complaint History Of Prese nt Illness No Information Functional Status Date Functional Assessmen t No Information Instructions Date Instruction Additional Infor mation No Information Assessments Type Assessment Date No Information Patient Care Teams Name Effective Dates (start - stop) Status Members No Information
--- OUTSIDE RECORDS SUMMARY | 2023-07-10 22:33 | XMS_ITS | Continuity of Care Document ---
Author Name Unknown Organization Z [facility] Address [address] [place] [address] [address] [place] [address] Phone Care Team Providers Care Vamp Maker Name Role Phone Valdez Badillo MD Unavailable Unavailable Medications Medication Instructions Dosage Effective Dates (start - stop) Status Comments [place] 10 mg-325 mg Tab take 1 tablet [...] Date Provider Providers Copied on Encounter Z [facility], [address] [place] [address], [address], [place] tel:[phone] [facility] No Information 0 Justino Kellogg. [facility], [address], [facility] [address], [place], [id number], [place]. tel:[phone] Referring Provider: Christopher Tello, [address], [place], [address]. tel:[phone] [facility], [address] [place] [address] [address], [place], [address], tel:[phone] [facility] [employer] No Information 2-201 0 Eckroth Darshan. [address] [place] [address], [id number], . tel:[phone] Referring Provider: Christopher Tello, [facility] [address] , [place], [address]. tel:[phone] [facility], [address] [place] [address], [facility], [place] tel:[phone] [facility] [employer] No Information - 0 Transfeldt Ensor. [facility], [address] [place] [address], [address] [place] [address], . tel:[phone] [facility], [address] [place] [address], [facility], [place] tel:[phone] [facility] No Information 0 Transfeldt Ensor. [facility], [address] [place] [address], [id number], . tel:[phone] Referring Provider: Christopher Tello, [facility], [place], [address]. tel:[phone] Office consultation , moderate [facility], [address] [place] [address], [facility], [place] tel:[phone] [facility] [employer] No Information 0 Transfeldt Ensor. [facility], [address], [id number], . tel:[phone] Family History Family Member Type Diagnosis Age At Onset No Information Payers Payer name Insurance type Covered democrat ID Dianna cross(s) [facility] [id number] Social History Type Description Quantity Date Captured [...]
== END 2023-07-10 23:10 | disposition home or self-care (01) ==
PROVIDERS: Emergency Provider Emergency Medicine Emergency Medical Services; PCP Family Medicine
DX: R07.89 Other chest pain (principal); K21.9 Gastro-esophageal reflux disease without esophagitis
CPT/HCPCS: 01214; 36415; 64450; 73501; 76000; 76942; 86850; 86900; 86901; 97110; 97116; 97161; 99283; 99284; A9270; C1713; C1776; J0330; J0690; J1100; J1170; J2250; J2405; J2704; J2765; J2795; J3010; J7120

== ENCOUNTER 2025-01-06 13:47 | Outpatient (CLI) | payer BC, SELFPAY ==
--- NOTE | 2025-01-06 14:00 | CRLHL7_ITS ---
For Patients: As a result of the 21st Century Cures Act, medical imaging exams and procedure reports are released immediately into your electronic medical record. You may view this report before your referring provider. If you have questions, please contact your health care provider. INDICATION: PAIN IN TMJS BOTH SIDES TECHNIQUE: CT of the temporal bones without contrast. Coronal and axial small field of view reconstructions of both temporal bones are included. COMPARISON: CT 03/30/2017 FINDINGS: RIGHT temporal bone: The external auditory canal is widely patent. No EAC stenosis or obstruction. The tympanic membrane is not thickened. The right middle ear is clear. No material is present within the sinus tympani. The ossicles are normal in appearance and location with no erosions or dislocation. The otic capsule is normal in appearance. No sclerosis within the labyrinthine canal. No fistula between the labyrinth and the middle ear. The vestibule and semicircular canals are normal in morphology with no evidence of semicircular canal dehiscence. Normal cochlear morphology with appropriate number of turns. Vestibular aqueduct is normal in size. Facial nerve canal is intact and normal in course/caliber. Petrous apex is normal. Mastoid air cells are clear. The carotid canal and jugular foramen are normal. LEFT temporal bone: The external auditory canal is widely patent. No EAC stenosis or obstruction. The tympanic membrane is not thickened. The left middle ear is clear. No material is present within the sinus tympani. The ossicles are normal in appearance and location with no erosions or dislocation. The otic capsule is normal in appearance. No sclerosis within the labyrinthine canal. No fistula between the labyrinth and the middle ear. The vestibule and semicircular canals are normal in morphology with no evidence of semicircular canal dehiscence. Normal cochlear morphology with appropriate number of turns. Vestibular aqueduct is normal in size. Facial nerve canal is intact and normal in course/caliber. Petrous apex is normal. Chronic trace fluid opacification of the left mastoid air cells. The carotid canal and jugular foramen are normal. OTHER: The imaged intracranial structures are normal in appearance. Orbits are normal. Imaged soft tissue structures are normal in appearance. Mild left temporomandibular joint space narrowing and minimal subchondral cystic changes compatible with degenerative changes. Mild right temporomandibular joint space narrowing without evidence of osseous degeneration. Mild polypoid mucosal thickening in the left maxillary sinus. Rightward deviation of the nasal septum. The remainder of the visualized paranasal sinuses are clear. IMPRESSION: 1. Mild left temporomandibular joint space narrowing and minimal subchondral cystic changes compatible with degenerative changes. 2. Mild right temporomandibular joint space narrowing without evidence of osseous degeneration. 3. Chronic trace fluid opacification of the left mastoid air cells. Unremarkable extruding canals, middle ear canals, and otic capsule structures. Please note that all CT scans at this facility use dose modulation, iterative reconstruction, and/or weight-based dosing when appropriate to reduce radiation dose to as low as reasonably achievable. Dictated by Robin Wan MD @ 01/10/2025 9:05:30 AM (Electronically Signed)
== END 2025-01-06 13:48 | disposition home or self-care (01) ==
LOC: CT 13:48
PROVIDERS: PCP Family Medicine; Visit Provider Dentist
DX: M26.633 Articular disc disorder of bilateral temporomandibular joint (principal)
CPT/HCPCS: 70480